=== PATIENT | female | born 1935 | race Two or more races ===

== ENCOUNTER 2016-10-09 13:16 | Emergency (ER) | payer OTHER ==
[2016-10-09 13:25] VITALS: BP 154/58; PULSE 72; TEMP 98.1; BMI 22.1
== END 2016-10-09 13:58 | disposition home or self-care (01) ==
LOC: JERFT 13:16
DX: Z48.02 Encounter for removal of sutures (principal)
CPT/HCPCS: 99281-25

== ENCOUNTER 2017-02-03 13:10 | Inpatient (IN) | payer MEDICARE, OTHER ==
--- NOTE | 2017-02-03 13:51 | PDOC ---
History of Present Illness - General Chief Complaint: Injury Stated Complaint: VOMITING Time Seen by Provider: 02/03/17 13:35 History Source: Patient - History of Present Illness Initial Comments: 02/03/17 14:07 Pt. is an 81 y/o female with PMH of HTN, CVA, afib, HLD, anemia, renal insufficiency, BIBA who presents to the ED after slipping off of the bed. Pt. states she was trying to get up from bed when she felt herself sliding off of her silk sheets. She denies hitting her head and denies any pain. She states that prior to getting out of bed she vomiting after eating cherries. She currently has no complaints and states that she feels fine. Denies fevers, chills, malaise, cough, chest pain, edema, palpitations, SOB, wheezing, nausea, diarrhea, constipation, melena, hematachezia weakness, and numbness. Past History - Travel Traveled outside of the country in the last 30 days: No Close contact w/someone who was outside of country & ill: No - Past Medical History Allergies/Adverse Reactions: Allergies Allergy/AdvReac Type Severity Reaction Status Date / Time No Known Allergies Allergy Verified 02/03/17 13:56 Home Medications: Ambulatory Orders Aspirin [ASA -] 81 mg PO DAILY 09/01/15 Carvedilol 25 mg PO BID 09/01/15 Clopidogrel Bisulfate [Clopidogrel] 75 mg PO DAILY 09/01/15 Gabapentin 100 mg PO HS 09/01/15 Levetiracetam 250 mg PO BID 09/01/15 Levothyroxine [Synthroid -] 125 mcg PO DAILY 09/01/15 Ranitidine [Zantac -] 150 mg PO DAILY 09/01/15 Simvastatin 10 mg PO HS 09/01/15 Solifenacin Succinate [Vesicare -] 10 mg PO DAILY 01/27/16 Acetaminophen [Tylenol .Regular Strength -] 650 mg PO Q6H PRN #0 tablet Heparin - 5,000 unit SQ BID vial 01/29/16 Insulin (Novolog) [Novolog -] 0 units SQ ACHS units 01/29/16 Latanoprost 0.005% Eye Drops [Xalatan 0.005% Eye Drops -] 1 drop OU DAILY drops 01/29/16 Nifedipine ER [Procardia XL -] 30 mg PO DAILY tab.er.24 01/29/16 Oxycodone HCl/Acetaminophen [Percocet 5-325 mg Tablet] 1 tab PO Q8H PRN #20 tablet MDD 3 01/29/16 Polyethylene Glycol 3350 [Miralax 119 gm Btl -] 17 gm PO DAILY bottle 01/29/16 Cardiac Disorders: Yes CVA: Yes (3-4 y/ago) Diabetes: Yes HTN: Yes Seizures: Yes (3-4 y/ago) - Surgical History Cholecystectomy: Yes Orthopedic Surgery: Yes (Right foot) - Psycho/Social/Smoking Cessation Hx Anxiety: No Suicidal Ideation: No Smoking Status: No Smoking History: Never smoked Have you smoked in the past 12 months: No Number of Cigarettes Smoked Daily: 0 Hx Alcohol Use: No Drug/Substance Use Hx: No Substance Use Type: None Hx Substance Use Treatment: No Review of Systems - Review of Systems Able to Perform ROS?: Yes Is the patient limited [place] proficient: No Constitutional: No: Chills, Fever, Weakness HEENTM: No: Eye Pain, Ear Pain, Throat Pain, Mouth Pain, Difficulty Swallowing Respiratory: No: Cough, Shortness of Breath, SOB with Exertion Cardiac (ROS): No: Chest Pain, Edema, Irregular Heart Rate, Lightheadedness, Palpitations, Chest Tightness ABD/GI: Yes: Vomiting. No: Constipated, Difficulty Swallowing, Nausea, Tarry Stools : No: Burning, Dysuria, Discharge, Frequency Integumentary: No: Bruising, Erythema, Rash Neurological: No: Headache, Numbness, Weakness All Other Systems: Reviewed and Negative *Physical Exam - Physical Exam General Appearance: Yes: Nourished, Appropriately Dressed, Other (Laying on hospital bed, AAOx3, breathing easily; not using accessory muscles to breathe. Vital signs upon entering the). No: Apparent Distress Neck: positive: Trachea midline, Normal Thyroid, Supple. negative: Tender, Rigid, Lymphadenopathy (R), Lymphadenopathy (L) Respiratory/Chest: positive: Rales (LLL). negative: Chest Tender, Lungs Clear, Normal Breath Sounds (decreased sounds to the L lung base), Respiratory Distress , Accessory Muscle Use, Rhonchi, Wheezing Cardiovascular: positive: Regular Rhythm, S1, S2, Murmur (early systolic II/, loudest at the base, L 3rd intercostal space), Tachycardia Gastrointestinal/Abdominal: positive: Normal Bowel Sounds, Flat, Soft. negative : Tender, Organomegaly, Pulsatile Mass Extremity: positive: Normal Capillary Refill, Normal Inspection, Normal Range of Motion. negative: Tender Integumentary: positive: Normal Color, Dry, Warm Neurologic: positive: geographic information scientist II-XII NML intact, Fully Oriented, Normal Mood/Affect , Normal Response, Motor Strength /5 ED Treatment Course - LABORATORY CBC & Chemistry Diagram: 02/06/17 06:00 02/08/17 06:50 Medical Decision Making - Critical Care Time Total Critical Care Time (minutes): 35 Critical Care Statement: The care of this patient involved high complexity decision making to prevent further life threatening deterioration of the patient 's condition and/or to evalute & treat vital organ system(s) failure or risk of failure. - Medical Decision Making 02/03/17 14:23 Pt. is an 81 y/o female who presents to the ED after sliding off of her bed. She presently has no complaints and states that she feels fine, however vital signs are notable for a fever of 100.0F, tachycardia to the 120's, 18 RR, and she is currently sating 93% RA. Will begin septic work up at this time. 1. Septic order set 2. IV fluids, O2 NC @ 2 LPM 3. EKG, CXR 4. Re-evaluate 02/03/17 14:57 CXR shows LLL infiltrate. Waiting for blood cultures to be drawn and then will start Levaquin. IV fluids EKG: Rate 117 sinus rhythm, normal intervals, normal axis. No acute ST-T wave changes 02/03/17 15:24 WBC is within normal limits however there are elevated leukocytes. BUN and Creatinine are elecated 40/2.[address] Seferino Mena for admission 02/03/17 15:41 Dr. Pa accepts the pt. *DC/Admit/Observation/Transfer Diagnosis at time of Disposition: HORTENSIA (acute kidney injury), Dehydration Pneumonia Qualifiers: Pneumonia type: due to unspecified organism Laterality: left Lung location: lower lobe of lung Qualified Code(s): J18.1 - Lobar pneumonia, unspecified organism - Discharge Dispostion Admit: Yes
[2017-02-03] MEDS ORDERED: SODIUM CHLORIDE 1,000 ML IV STA (14:03)
--- NOTE | 2017-02-03 15:26 | EKG ---
Test Reason : Blood Pressure : / mmHG Vent. Rate : 117 BPM Atrial Rate : 117 BPM P-R Int : 166 ms QRS Dur : 080 ms QT Int : 310 ms P-R-T Axes : 077 075 064 degrees QTc Int : 432 ms SINUS TACHYCARDIA POSSIBLE LEFT ATRIAL ENLARGEMENT LOW VOLTAGE QRS SEPTAL INFARCT (CITED ON OR BEFORE 13-JAN-2015) ABNORMAL ECG WHEN COMPARED WITH ECG OF 26-JAN-2016 10:01, PREMATURE VENTRICULAR COMPLEXES ARE NO LONGER PRESENT QUESTIONABLE CHANGE IN QRS AXIS Confirmed by DOUG YEE, DAVID ([id number]) on 02/03/2017 3:26:26 PM Referred By: Confirmed By:DAVID CAMACHO MD
[2017-02-03 15:40] LABS: BASOPHIL 0.3 % (0-2.0); EOSINOPHIL 0.4 % (0-4.5); MCH 28.8 pg (25.7-33.7); MEAN CELL VOLUME 87.4 fl (80-96); MEAN PLT VOLUME 9.2 fl (7.5-11.1); NEUTROPHILS 86.1 % (42.8-82.8); PLATELET COUNT 146 K/MM3 (134-434); WHITE BLOOD COUNT 8.3 K/mm3 (4.0-10.0)
[2017-02-03] MEDS ORDERED: LEVOFLOXACIN 750 MG IVPB 150 ML IVPB ONE ×2 (15:47→17:01)
[2017-02-03 15:58] LABS: INR 1.09 (0.82-1.09)
[2017-02-03 16:17] LABS: ALBUMIN 3.3 g/dl (3.4-5.0); ANION GAP 7 (8-16); BILIRUBIN,TOTAL 0.2 mg/dL (0.2-1.0); CALCIUM 10.4 mg/dL (8.5-10.1); CO2 26 mmol/L (21-32); CREATININE 2.4 mg/dL (0.55-1.02); GLUCOSE,RANDOM 168 mg/dL (74-106); SGOT/AST 19 U/L (15-37); SGPT/ALT 20 U/L (12-78); TOT PROT 7.4 g/dl (6.4-8.2)
[2017-02-03 16:19] LABS: ALK PHOS 55 U/L (45-117); CPK 82 IU/L (26-192); TROPONIN I 0.03 ng/ml (0.00-0.05)
[2017-02-03 17:42] LABS: URINE APPEARANCE SLCLOUDY; URINE BILIRUBIN NEGATIVE (NEGATIVE); URINE BLOOD 2+ (NEGATIVE); URINE COLOR YELLOW; URINE GLUCOSE (UA) NEGATIVE (NEGATIVE); URINE KETONE NEGATIVE (NEGATIVE); URINE NITRITE POSITIVE (NEGATIVE); URINE UROBILINOGEN NEGATIVE mg/dL (0.2-1.0)
[2017-02-03 18:14] LABS: URINE LEUK ESTERASE 1+ (NEGATIVE); URINE PROTEIN 2+ (NEGATIVE)
--- NOTE | 2017-02-03 18:21 | HP ---
Admitting History and Physical - Primary Care Physician PCP: Seferino Mena - Admission Chief Complaint: Fall. Vomitting History of Present Illness: Pt came today to ER, by EMS, after fall at home. Pt states that slid down from the bed while trying to get out it because was new sheets; pt admits that she was weak to get up and "pressed the button" for help. Pt w/o CP, palpitation, SOB, dizziness prior to fall or after. Pt tessie vomited last nught, blame it on some cherries she ate earlier; no abd pain, diarrhea. In ER she was noticed to have PNA, ARF. 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 Cardiovascular: Yes: HTN, Hyperlipdemia Renal/: Yes: Renal Inusuff Heme/Onc: Yes: Anemia Endocrine: Yes: Diabetes Mellitus Additional Past Medical History: Fall Head Trauma - Past Surgical History Past Surgical History: Yes: Cholecystectomy - Smoking History Smoking history: Never smoked Have you smoked in the past 12 months: No Aproximately how many cigarettes per day: 0 - Alcohol/Substance Use Hx Alcohol Use: No - Social History ADL: Independent History of Recent Travel: No Home Medications - Allergies Allergies/Adverse Reactions: Allergies Allergy/AdvReac Type Severity Reaction Status Date / Time No Known Allergies Allergy Verified 02/03/17 13:56 - Home Medications Home Medications: Ambulatory Orders Aspirin [ASA -] 81 mg PO DAILY 09/01/15 Carvedilol 25 mg PO BID 09/01/15 Clopidogrel Bisulfate [Clopidogrel] 75 mg PO DAILY 09/01/15 Gabapentin 100 mg PO HS 09/01/15 Levetiracetam 250 mg PO BID 09/01/15 Levothyroxine [Synthroid -] 125 mcg PO DAILY 09/01/15 Ranitidine [Zantac -] 150 mg PO DAILY 09/01/15 Simvastatin 10 mg PO HS 09/01/15 Solifenacin Succinate [Vesicare -] 10 mg PO DAILY 01/27/16 Acetaminophen [Tylenol .Regular Strength -] 650 mg PO Q6H PRN #0 tablet Heparin - 5,000 unit SQ BID vial 01/29/16 Insulin (Novolog) [Novolog -] 0 units SQ ACHS units 01/29/16 Latanoprost 0.005% Eye Drops [Xalatan 0.005% Eye Drops -] 1 drop OU DAILY drops 01/29/16 Nifedipine ER [Procardia XL -] 30 mg PO DAILY tab.er.24 01/29/16 Oxycodone HCl/Acetaminophen [Percocet 5-325 mg Tablet] 1 tab PO Q8H PRN #20 tablet MDD 3 01/29/16 Polyethylene Glycol 3350 [Miralax 119 gm Btl -] 17 gm PO DAILY bottle 01/29/16 Review of Systems - Review of Systems Constitutional: denies: Chills, Fever Eyes: denies: Blurred Vision, Double Vision, Recent Change in Vision HENT: denies: Difficult Swallowing, Ear Discharge, Ear Pain, Nasal Congestion, Throat Pain Neck: denies: Pain on Movement, Stiffness Cardiovascular: denies: Chest Pain, Edema, Palpitations, Shortness of Breath Respiratory: denies: Cough, SOB, SOB on Exertion, Wheezing Gastrointestinal: reports: Vomiting (yesterday). denies: Abdominal Pain, Constipation, Diarrhea Genitourinary: denies: Burning, Discharge Breasts: denies: Discharge from Nipple, Lumps Musculoskeletal: denies: Back Pain, Muscle Pain Integumentary: denies: Bruising, Rash Neurological: reports: Weakness. denies: Change in LOC, Incoordination, Numbness, Tremors Endocrine: denies: Excessive Sweating, Intolerance to Cold Hematology/Lymphatic: denies: Easily Bruised, Excessive Bleeding Psychiatric: denies: Anxiety, Depression Physical Examination Vital Signs: Vital Signs Temperature 100.0 F H 02/03/17 13:10 Pulse Rate 117 H 02/03/17 13:10 Respiratory Rate 18 02/03/17 13:10 Blood Pressure 177/67 02/03/17 13:10 O2 Sat by Pulse Oximetry (%) 93 L 02/03/17 13:10 Constitutional: Yes: No Distress, Calm Eyes: Yes: Conjunctiva Clear, EOM Intact, PERRL HENT: No: Drooling, Epistaxis, Pharyngeal Erythema, Rhinnorhea Neck: Yes: Trachea Midline. No: Lymphadenopathy Cardiovascular: Yes: Regular Rate and Rhythm, S1, S2 Respiratory: Yes: Regular, Wheezes (with expiration inr mid and upper lobe) Gastrointestinal: Yes: Normal Bowel Sounds, Soft. No: Palpable Mass, Tenderness ...Rectal Exam: Yes: Deferred Renal/: No: CVA Tenderness - Left, CVA Tenderness - Right Breast(s): Yes: Other (deferred) Musculoskeletal: No: Back Pain, Joint Stiffness, Joint Swelling Edema: No Integumentary: No: Bruising, Rash Neurological: Yes: Oriented, Other (motor and sensory examination is symmetric in UE/ LE/ face) Psychiatric: Yes: Alert, Oriented Labs: reviewed Imaging - Results Chest X-ray: Image Reviewed Problem List - Problems (1) Pneumonia Code(s): J18.9 - PNEUMONIA, UNSPECIFIED ORGANISM Qualifiers: Pneumonia type: due to unspecified organism Laterality: left Lung location: lower lobe of lung Qualified Code(s): J18.1 - Lobar pneumonia, unspecified organism (2) HORTENSIA (acute kidney injury) Assessment/Plan: in the setting of vomitting, PNA Code(s): N17.9 - ACUTE KIDNEY FAILURE, UNSPECIFIED (3) CAD (coronary artery disease) Code(s): I25.10 - ATHSCL HEART DISEASE OF [place] CORONARY ARTERY W/O ANG PCTRS (4) Lactic acid acidosis Assessment/Plan: borderline in the setting of ARF Code(s): E87.2 - ACIDOSIS Assessment/Plan IV abtx IVF AM labs To monitor BCX, UCX
[2017-02-03] MEDS ORDERED: ACETAMINOPHEN 325 MG TABLET (FP) PO PRN ×2 (18:39→19:20)
[2017-02-03] MEDS ORDERED: oxyCODONE HCL 5 MG TABLET PO PRN (19:20)
[2017-02-03] MEDS: HEPARIN NA (PORCINE) 5,000 UNITS/ML 1ML VIAL SQ SCH (21:59)
[2017-02-03] MEDS: CARVEDILOL 25 MG TABLET (FP) PO SCH (21:59)
[2017-02-03] MEDS: levETIRAcetam 250 MG TABLET (FP) PO SCH (21:59)
[2017-02-03] MEDS: LATANOPROST 0.005% OPHTH SOLN 2.5ML BOTTLE OU SCH (22:00)
[2017-02-03] MEDS: ATORVASTATIN CA 10 MG TABLET (FP) PO SCH (22:00)
[2017-02-04] MEDS: LEVOTHYROXINE NA 125 MCG TABLET (FP) PO SCH (06:40)
[2017-02-04 07:12] LABS: ALBUMIN 2.7 g/dl (3.4-5.0); ANION GAP 5 (8-16); BILIRUBIN,TOTAL 0.5 mg/dL (0.2-1.0); CALCIUM 9.9 mg/dL (8.5-10.1); CO2 27 mmol/L (21-32); GLUCOSE,RANDOM 59 mg/dL (74-106); SGOT/AST 14 U/L (15-37); SGPT/ALT 15 U/L (12-78); TOT PROT 6.4 g/dl (6.4-8.2)
[2017-02-04 07:13] LABS: ALK PHOS 46 U/L (45-117)
[2017-02-04 07:30] LABS: MCH 29.3 pg (25.7-33.7); MCHC 33.6 g/dl (32.0-36.0); MEAN CELL VOLUME 87.1 fl (80-96); MEAN PLT VOLUME 9.2 fl (7.5-11.1); PLATELET COUNT 108 K/MM3 (134-434); RDW 13.9 % (11.6-15.6); WHITE BLOOD COUNT 6.5 K/mm3 (4.0-10.0)
--- NOTE | 2017-02-04 10:10 | PN ---
Progress Note, Physician History of Present Illness: Pt w/o SOB, CP, palp, dizziness, abd pain, diarrhea - Current Medication List Current Medications: Active Medications Acetaminophen (Tylenol -) 650 mg PO Q6H PRN PRN Reason: FEVER OR PAIN Acetaminophen (Tylenol -) 325 mg PO Q8H PRN PRN Reason: PAIN Aspirin (Asa -) 81 mg PO DAILY COUNTS INCLUDE 234 BEDS AT [facility] Atorvastatin Calcium (Lipitor -) 10 mg PO HS COUNTS INCLUDE 234 BEDS AT THE [facility] Last Admin: 02/03/17 22:00 Dose: 10 mg Carvedilol (Coreg -) 25 mg PO BID COUNTS INCLUDE 234 BEDS AT THE [facility] Last Admin: 02/03/17 21:59 Dose: 25 mg Clopidogrel Bisulfate (Plavix -) 75 mg PO DAILY COUNTS INCLUDE 234 BEDS AT THE [facility] Heparin Sodium (Porcine) (Heparin -) 5,000 unit SQ BID COUNTS INCLUDE 234 BEDS AT THE [facility] Last Admin: 02/03/17 21:59 Dose: 5,000 unit Levofloxacin (Levaquin 250 Mg Premixed Ivpb -) 50 mls @ 50 mls/hr IVPB DAILY COUNTS INCLUDE 234 BEDS AT THE [facility] Sodium Chloride (Normal Saline -) 1,000 mls @ 42 mls/hr IV ASDIR COUNTS INCLUDE 234 BEDS AT THE [facility] Latanoprost (Xalatan 0.005% Eye Drops -) 1 drop OU HS COUNTS INCLUDE 234 BEDS AT THE [facility] Last Admin: 02/03/17 22:00 Dose: 1 drop Levetiracetam (Keppra -) 250 mg PO BID COUNTS INCLUDE 234 BEDS AT THE [facility] Last Admin: 02/03/17 21:59 Dose: 250 mg Levothyroxine Sodium (Synthroid -) 125 mcg PO DAILY@0700 COUNTS INCLUDE 234 BEDS AT THE [facility] Last Admin: 02/04/17 06:40 Dose: 125 mcg Nifedipine (Procardia Xl -) 30 mg PO DAILY COUNTS INCLUDE 234 BEDS AT THE [facility] Oxycodone HCl (Roxicodone -) 5 mg PO Q8H PRN PRN Reason: PAIN Ranitidine HCl (Zantac -) 150 mg PO DAILY COUNTS INCLUDE 234 BEDS AT THE [facility] Solifenacin (Vesicare -) 10 mg PO DAILY COUNTS INCLUDE 234 BEDS AT THE [facility] - Objective Vital Signs: Vital Signs Temperature 100.0 F H 02/04/17 06:00 Pulse Rate 92 H 02/04/17 06:00 Respiratory Rate 20 02/04/17 06:00 Blood Pressure 151/75 02/04/17 06:00 O2 Sat by Pulse Oximetry (%) 99 02/03/17 21:00 Constitutional: Yes: No Distress, Calm Cardiovascular: Yes: Regular Rate and Rhythm, S1, S2 Respiratory: Yes: Regular, Rales, Rhonchi, Wheezes (minimal expiratory) Gastrointestinal: Yes: Normal Bowel Sounds, Soft. No: Tenderness Edema: No Neurological: Yes: Alert, Oriented Labs: CBC, BMP 02/04/17 06:15 02/04/17 06:15 INR, PTT INR 1.09 (0.82-1.09) 02/03/17 15:30 - ....Imaging Chest X-ray: Report Reviewed, Image Reviewed Problem List - Problems (1) Pneumonia Assessment/Plan: community acquired Code(s): J18.9 - PNEUMONIA, UNSPECIFIED ORGANISM Qualifiers: Pneumonia type: due to unspecified organism Laterality: left Lung location: lower lobe of lung Qualified Code(s): J18.1 - Lobar pneumonia, unspecified organism (2) HORTENSIA (acute kidney injury) Assessment/Plan: in the setting of vomiting, PNA. Improving with IVF Code(s): N17.9 - ACUTE KIDNEY FAILURE, UNSPECIFIED (3) CAD (coronary artery disease) Code(s): I25.10 - ATHSCL HEART DISEASE OF [place] CORONARY ARTERY W/O ANG PCTRS (4) Lactic acid acidosis Assessment/Plan: resolved with hydration Code(s): E87.2 - ACIDOSIS Assessment/Plan Cont IV abtx Cont IVF AM labs To monitor BCX, UCX
[2017-02-04] MEDS: LEVOFLOXACIN 250 MG IVPB 50 ML IVPB SCH (10:52)
[2017-02-04] MEDS: SODIUM CHLORIDE 1,000 ML IV SCH (10:52)
[2017-02-04] MEDS: HEPARIN NA (PORCINE) 5,000 UNITS/ML 1ML VIAL SQ SCH ×2 (10:53→21:24)
[2017-02-04] MEDS: levETIRAcetam 250 MG TABLET (FP) PO SCH ×2 (10:53→21:25)
[2017-02-04] MEDS: SOLIFENACIN SUCCINATE 5 MG TAB (FP) PO SCH (10:53)
[2017-02-04] MEDS: RANITIDINE HCL 150 MG TABLET (FP) PO SCH (10:53)
[2017-02-04] MEDS: ASPIRIN 81 MG CHEWABLE TABLETS PO SCH (10:53)
[2017-02-04] MEDS: NIFEdipine E.R. 30 MG TABLET (FP) PO SCH (10:53)
[2017-02-04] MEDS: CLOPIDOGREL BISULFATE 75 MG TABLET (FP) PO SCH (10:53)
[2017-02-04] MEDS: CARVEDILOL 25 MG TABLET (FP) PO SCH ×2 (10:53→21:24)
[2017-02-04] MEDS: ATORVASTATIN CA 10 MG TABLET (FP) PO SCH (21:25)
[2017-02-04] MEDS: LATANOPROST 0.005% OPHTH SOLN 2.5ML BOTTLE OU SCH (21:26)
[2017-02-05] MEDS: LEVOTHYROXINE NA 125 MCG TABLET (FP) PO SCH (06:15)
[2017-02-05 08:07] LABS: MEAN CELL VOLUME 87.8 fl (80-96); MEAN PLT VOLUME 9.1 fl (7.5-11.1); PLATELET COUNT 105 K/MM3 (134-434); RDW 14.2 % (11.6-15.6); WHITE BLOOD COUNT 5.4 K/mm3 (4.0-10.0)
[2017-02-05 08:49] LABS: ANION GAP 9 (8-16); CALCIUM 9.7 mg/dL (8.5-10.1); CO2 24 mmol/L (21-32); CREATININE 1.9 mg/dL (0.55-1.02); GLUCOSE,RANDOM 68 mg/dL (74-106)
[2017-02-05] MEDS: SODIUM CHLORIDE 1,000 ML IV SCH (09:39)
[2017-02-05] MEDS: LEVOFLOXACIN 250 MG IVPB 50 ML IVPB SCH (09:46)
[2017-02-05] MEDS: HEPARIN NA (PORCINE) 5,000 UNITS/ML 1ML VIAL SQ SCH ×2 (09:47→22:27)
[2017-02-05] MEDS: levETIRAcetam 250 MG TABLET (FP) PO SCH ×2 (09:47→22:28)
[2017-02-05] MEDS: NIFEdipine E.R. 30 MG TABLET (FP) PO SCH (09:47)
[2017-02-05] MEDS: CLOPIDOGREL BISULFATE 75 MG TABLET (FP) PO SCH (09:47)
[2017-02-05] MEDS: RANITIDINE HCL 150 MG TABLET (FP) PO SCH (09:47)
[2017-02-05] MEDS: CARVEDILOL 25 MG TABLET (FP) PO SCH ×2 (09:47→22:26)
[2017-02-05] MEDS: SOLIFENACIN SUCCINATE 5 MG TAB (FP) PO SCH (09:47)
[2017-02-05] MEDS: ASPIRIN 81 MG CHEWABLE TABLETS PO SCH (09:47)
--- NOTE | 2017-02-05 10:33 | PN ---
Progress Note, Physician History of Present Illness: Pt w/o SOB, CP, palp, dizziness, abd pain, diarrhea. - Current Medication List Current Medications: Active Medications Acetaminophen (Tylenol -) 650 mg PO Q6H PRN PRN Reason: FEVER OR PAIN Acetaminophen (Tylenol -) 325 mg PO Q8H PRN PRN Reason: PAIN Last Admin: 02/04/17 10:54 Dose: 325 mg Aspirin (Asa -) 81 mg PO DAILY [facility] Last Admin: 02/05/17 09:47 Dose: 81 mg Atorvastatin Calcium (Lipitor -) 10 mg PO HS [facility] Last Admin: 02/04/17 21:25 Dose: 10 mg Carvedilol (Coreg -) 25 mg PO BID [facility] Last Admin: 02/05/17 09:47 Dose: 25 mg Clopidogrel Bisulfate (Plavix -) 75 mg PO DAILY [facility] Last Admin: 02/05/17 09:47 Dose: 75 mg Heparin Sodium (Porcine) (Heparin -) 5,000 unit SQ BID [facility] Last Admin: 02/05/17 09:47 Dose: 5,000 unit Levofloxacin (Levaquin 250 Mg Premixed Ivpb -) 50 mls @ 50 mls/hr IVPB DAILY [facility] Last Admin: 02/05/17 09:46 Dose: 50 mls/hr Sodium Chloride (Normal Saline -) 1,000 mls @ 42 mls/hr IV ASDIR [facility] Last Admin: 02/05/17 09:39 Dose: 42 mls/hr Latanoprost (Xalatan 0.005% Eye Drops -) 1 drop OU HS [facility] Last Admin: 02/04/17 21:26 Dose: 1 drop Levetiracetam (Keppra -) 250 mg PO BID [facility] Last Admin: 02/05/17 09:47 Dose: 250 mg Levothyroxine Sodium (Synthroid -) 125 mcg PO DAILY@0700 [facility] Last Admin: 02/05/17 06:15 Dose: 125 mcg Nifedipine (Procardia Xl -) 30 mg PO DAILY [facility] Last Admin: 02/05/17 09:47 Dose: 30 mg Oxycodone HCl (Roxicodone -) 5 mg PO Q8H PRN PRN Reason: PAIN Ranitidine HCl (Zantac -) 150 mg PO DAILY [facility] Last Admin: 02/05/17 09:47 Dose: 150 mg Solifenacin (Vesicare -) 10 mg PO DAILY [facility] Last Admin: 02/05/17 09:47 Dose: 10 mg - Objective Vital Signs: Vital Signs Temperature 98.8 F 02/05/17 06:00 Pulse Rate 92 H 02/05/17 06:00 Respiratory Rate 18 02/05/17 06:00 Blood Pressure 144/70 02/05/17 06:00 O2 Sat by Pulse Oximetry (%) 97 02/04/17 21:00 Constitutional: Yes: No Distress, Calm Cardiovascular: Yes: Regular Rate and Rhythm, S1, S2 Respiratory: Yes: Regular, Rales (at bases, L > R) Gastrointestinal: Yes: Normal Bowel Sounds, Soft. No: Tenderness Edema: No Neurological: Yes: Alert, Oriented Labs: CBC, BMP 02/05/17 06:58 02/05/17 06:58 INR, PTT INR 1.09 (0.82-1.09) 02/03/17 15:30 Problem List - Problems (1) Pneumonia Code(s): J18.9 - PNEUMONIA, UNSPECIFIED ORGANISM Qualifiers: Pneumonia type: due to unspecified organism Laterality: left Lung location: lower lobe of lung Qualified Code(s): J18.1 - Lobar pneumonia, unspecified organism (2) HORTENSIA (acute kidney injury) Code(s): N17.9 - ACUTE KIDNEY FAILURE, UNSPECIFIED (3) CAD (coronary artery disease) Code(s): I25.10 - ATHSCL HEART DISEASE OF [place] CORONARY ARTERY W/O ANG PCTRS (4) Lactic acid acidosis Code(s): E87.2 - ACIDOSIS Assessment/Plan Cont IV abtx Cont IVF Check O2 sat ARF improving AM labs To monitor BCX, UCX
[2017-02-05] MEDS ORDERED: PT OWN MED DRAWER 7, Y5N ONE (21:53)
[2017-02-05] MEDS: ATORVASTATIN CA 10 MG TABLET (FP) PO SCH (22:30)
[2017-02-05] MEDS: LATANOPROST 0.005% OPHTH SOLN 2.5ML BOTTLE OU SCH (22:30)
[2017-02-06] MEDS: LEVOTHYROXINE NA 125 MCG TABLET (FP) PO SCH (06:34)
[2017-02-06 07:01] LABS: MCH 28.9 pg (25.7-33.7); MCHC 32.9 g/dl (32.0-36.0); MEAN CELL VOLUME 87.9 fl (80-96); MEAN PLT VOLUME 9.5 fl (7.5-11.1); PLATELET COUNT 135 K/MM3 (134-434); RDW 13.9 % (11.6-15.6); WHITE BLOOD COUNT 5.2 K/mm3 (4.0-10.0)
[2017-02-06 07:30] LABS: ANION GAP 11 (8-16); CO2 22 mmol/L (21-32); GLUCOSE,RANDOM 133 mg/dL (74-106)
[2017-02-06] MEDS: SODIUM CHLORIDE 1,000 ML IV SCH ×3 (09:30→22:26)
[2017-02-06] MEDS ORDERED: PT OWN MED DRAWER 7, Y5N ONE (11:05)
[2017-02-06] MEDS: RANITIDINE HCL 150 MG TABLET (FP) PO SCH (11:07)
[2017-02-06] MEDS: SOLIFENACIN SUCCINATE 5 MG TAB (FP) PO SCH (11:07)
[2017-02-06] MEDS: NIFEdipine E.R. 30 MG TABLET (FP) PO SCH (11:08)
[2017-02-06] MEDS: CLOPIDOGREL BISULFATE 75 MG TABLET (FP) PO SCH (11:08)
[2017-02-06] MEDS: ASPIRIN 81 MG CHEWABLE TABLETS PO SCH (11:08)
[2017-02-06] MEDS: HEPARIN NA (PORCINE) 5,000 UNITS/ML 1ML VIAL SQ SCH ×2 (11:08→22:00)
[2017-02-06] MEDS: CARVEDILOL 25 MG TABLET (FP) PO SCH ×2 (11:08→22:00)
[2017-02-06] MEDS: LEVOFLOXACIN 250 MG IVPB 50 ML IVPB SCH (11:08)
[2017-02-06] MEDS: levETIRAcetam 250 MG TABLET (FP) PO SCH ×2 (11:08→22:01)
--- NOTE | 2017-02-06 13:45 | PN ---
Progress Note, Physician History of Present Illness: Pt w/o SOB, CP, palp, dizziness, abd pain, diarrhea. Pt "not drinking enough" - Current Medication List Current Medications: Active Medications Acetaminophen (Tylenol -) 650 mg PO Q6H PRN PRN Reason: FEVER OR PAIN Acetaminophen (Tylenol -) 325 mg PO Q8H PRN PRN Reason: PAIN Last Admin: 02/04/17 10:54 Dose: 325 mg Aspirin (Asa -) 81 mg PO DAILY [facility] Last Admin: 02/06/17 11:08 Dose: 81 mg Atorvastatin Calcium (Lipitor -) 10 mg PO HS [facility] Last Admin: 02/05/17 22:30 Dose: 10 mg Carvedilol (Coreg -) 25 mg PO BID [facility] Last Admin: 02/06/17 11:08 Dose: 25 mg Clopidogrel Bisulfate (Plavix -) 75 mg PO DAILY [facility] Last Admin: 02/06/17 11:08 Dose: 75 mg Heparin Sodium (Porcine) (Heparin -) 5,000 unit SQ BID [facility] Last Admin: 02/06/17 11:08 Dose: 5,000 unit Levofloxacin (Levaquin 250 Mg Premixed Ivpb -) 50 mls @ 50 mls/hr IVPB DAILY [facility] Last Admin: 02/06/17 11:08 Dose: 50 mls/hr Sodium Chloride (Normal Saline -) 1,000 mls @ 42 mls/hr IV ASDIR [facility] Last Admin: 02/06/17 09:30 Dose: 42 mls/hr Latanoprost (Xalatan 0.005% Eye Drops -) 1 drop OU HS [facility] Last Admin: 02/05/17 22:30 Dose: 1 drop Levetiracetam (Keppra -) 250 mg PO BID [facility] Last Admin: 02/06/17 11:08 Dose: 250 mg Levothyroxine Sodium (Synthroid -) 125 mcg PO DAILY@0700 [facility] Last Admin: 02/06/17 06:34 Dose: 125 mcg Nifedipine (Procardia Xl -) 30 mg PO DAILY [facility] Last Admin: 02/06/17 11:08 Dose: 30 mg Oxycodone HCl (Roxicodone -) 5 mg PO Q8H PRN PRN Reason: PAIN Ranitidine HCl (Zantac -) 150 mg PO DAILY [facility] Last Admin: 02/06/17 11:07 Dose: 150 mg Solifenacin (Vesicare -) 10 mg PO DAILY [facility] Last Admin: 02/06/17 11:07 Dose: 10 mg - Objective Vital Signs: Vital Signs Temperature 98.3 F 02/06/17 09:39 Pulse Rate 96 H 02/06/17 09:39 Respiratory Rate 20 02/06/17 09:39 Blood Pressure 134/78 02/06/17 09:39 O2 Sat by Pulse Oximetry (%) 93 L 02/05/17 21:00 Constitutional: Yes: No Distress, Calm Cardiovascular: Yes: Regular Rate and Rhythm, S1, S2 Respiratory: Yes: Regular, Rhonchi (at left base), Wheezes (minimal, expiratory) Gastrointestinal: Yes: Normal Bowel Sounds, Soft. No: Tenderness Edema: No Neurological: Yes: Alert, Oriented Labs: CBC, BMP 02/06/17 06:00 02/06/17 06:00 INR, PTT INR 1.09 (0.82-1.09) 02/03/17 15:30 Problem List - Problems (1) Pneumonia Code(s): J18.9 - PNEUMONIA, UNSPECIFIED ORGANISM Qualifiers: Pneumonia type: due to unspecified organism Laterality: left Lung location: lower lobe of lung Qualified Code(s): J18.1 - Lobar pneumonia, unspecified organism (2) HORTENSIA (acute kidney injury) Assessment/Plan: in the setting of vomiting, PNA. stop improving, worse that her baseline Code(s): N17.9 - ACUTE KIDNEY FAILURE, UNSPECIFIED (3) CAD (coronary artery disease) Code(s): I25.10 - ATHSCL HEART DISEASE OF [place] CORONARY ARTERY W/O ANG PCTRS (4) Lactic acid acidosis Code(s): E87.2 - ACIDOSIS Assessment/Plan Cont IV abtx Cont IVF Check O2 sat Renal consult AM labs Case was d/w pt and pt's son (at bed side)
[2017-02-06] MEDS: LATANOPROST 0.005% OPHTH SOLN 2.5ML BOTTLE OU SCH (22:01)
[2017-02-06] MEDS: ATORVASTATIN CA 10 MG TABLET (FP) PO SCH (22:01)
[2017-02-07] MEDS: LEVOTHYROXINE NA 125 MCG TABLET (FP) PO SCH (06:25)
[2017-02-07 07:47] LABS: ALK PHOS 46 U/L (45-117); ANION GAP 7 (8-16); BILIRUBIN,TOTAL 0.5 mg/dL (0.2-1.0); CO2 25 mmol/L (21-32); CREATININE 1.8 mg/dL (0.55-1.02); GLUCOSE,RANDOM 97 mg/dL (74-106); SGOT/AST 21 U/L (15-37); SGPT/ALT 17 U/L (12-78); TOT PROT 6.9 g/dl (6.4-8.2)
[2017-02-07 09:15] VITALS: BMI 23.4
--- NOTE | 2017-02-07 09:15 | CON.NEP ---
Consult Consult Specialty:: Nephrology ([facility]/Codey) Referred by:: Dr. Mena Reason for Consultation:: HORTENSIA on CKD - History of Present Illness Chief Complaint: Fall History of Present Illness: This is a 81 year old woman with PMhx of CKD stage 4 wtih tubular proteinuria, Hypertension, DM Type 2, CVA who presented s/p mechanical fall at home with inability to get up and found to have PNA and HORTENSIA on CKD. Pt reports that she has a poor appetite. Denies any N/V/D. + Advil use every other day at home. No dysuria, flank pain, sob, chest pain. No rash. No recent abx use outside the hospital Pt on IVF. - History Source History Provided By: Patient Limitations to Obtaining History: No Limitations - Past Medical History RN INTERNSHIP: Yes: CVA Cardio/Vascular: Yes: HTN, Hyperlipdemia Renal/: Yes: Renal Inusuff Endocrine: Yes: Diabetes Mellitus - Past Surgical History Past Surgical History: Yes: Cholecystectomy - Alcohol/Substance Use Hx Alcohol Use: No - Smoking History Smoking history: Never smoked Have you smoked in the past 12 months: No Aproximately how many cigarettes per day: 0 - Social History ADL: Independent History of Recent Travel: No Home Medications - Allergies Allergies/Adverse Reactions: Allergies Allergy/AdvReac Type Severity Reaction Status Date / Time No Known Allergies Allergy Verified 02/03/17 13:56 - Home Medications Home Medications: Ambulatory Orders Aspirin [ASA -] 81 mg PO DAILY 09/01/15 Carvedilol 25 mg PO BID 09/01/15 Clopidogrel Bisulfate [Clopidogrel] 75 mg PO DAILY 09/01/15 Gabapentin 100 mg PO HS 09/01/15 Levetiracetam 250 mg PO BID 09/01/15 Levothyroxine [Synthroid -] 125 mcg PO DAILY 09/01/15 Ranitidine [Zantac -] 150 mg PO DAILY 09/01/15 Simvastatin 10 mg PO HS 09/01/15 Solifenacin Succinate [Vesicare -] 10 mg PO DAILY 01/27/16 Acetaminophen [Tylenol .Regular Strength -] 650 mg PO Q6H PRN #0 tablet Heparin - 5,000 unit SQ BID vial 01/29/16 Insulin (Novolog) [Novolog -] 0 units SQ ACHS units 01/29/16 Latanoprost 0.005% Eye Drops [Xalatan 0.005% Eye Drops -] 1 drop OU DAILY drops 01/29/16 Nifedipine ER [Procardia XL -] 30 mg PO DAILY tab.er.24 01/29/16 Oxycodone HCl/Acetaminophen [Percocet 5-325 mg Tablet] 1 tab PO Q8H PRN #20 tablet MDD 3 01/29/16 Polyethylene Glycol 3350 [Miralax 119 gm Btl -] 17 gm PO DAILY bottle 01/29/16 Family Disease History - Family Disease History Family History: Unremarkable Review of Systems - Review of Systems Constitutional: reports: No Symptoms Eyes: reports: No Symptoms HENT: reports: No Symptoms Neck: reports: No Symptoms Cardiovascular: reports: No Symptoms Respiratory: reports: No Symptoms Gastrointestinal: reports: No Symptoms Genitourinary: reports: No Symptoms Neurological: reports: No Symptoms Endocrine: reports: No Symptoms Nephrology Consult - Height Height: 5 ft 6 in - Weight Weight: 145 lb 6 oz - BMI Body Mass Index (BMI): 23.4 - Lab Results CBC,BMP: CBC, BMP 02/06/17 06:00 02/07/17 06:00 Anion Gap: Anion Gap Anion Gap 7 (8-16) L 02/07/17 06:00 - Imaging Chest X-ray: Report Reviewed - Physical Examination Vital Signs: Vital Signs Temperature 97.7 F 02/07/17 06:00 Pulse Rate 83 02/07/17 06:00 Respiratory Rate 20 02/07/17 06:00 Blood Pressure 102/57 02/07/17 06:00 O2 Sat by Pulse Oximetry (%) 97 02/06/17 21:00 Constitutional: Yes: Well Nourished, No Distress, Calm Eyes: Yes: Conjunctiva Clear HENT: Yes: Atraumatic, Normocephalic Neck: Yes: Supple Cardiovascular: Yes: Regular Rate and Rhythm, S1, S2. No: Murmur, Rub Respiratory: Yes: Regular, CTA Bilaterally. No: Rales, Rhonchi Gastrointestinal: Yes: Normal Bowel Sounds, Soft Renal/: No: Anuria, Bladder Distention, CVA Tenderness - Left, CVA Tenderness - Right, Dim[place] Present Edema: No Neurological: Yes: Alert, Oriented Problem List - Problems (1) HORTENSIA (acute kidney injury) Code(s): N17.9 - ACUTE KIDNEY FAILURE, UNSPECIFIED (2) Diabetes Code(s): E11.9 - TYPE 2 DIABETES MELLITUS WITHOUT COMPLICATIONS (3) Hypertension Code(s): I10 - ESSENTIAL (PRIMARY) HYPERTENSION (4) Renal insufficiency Code(s): N28.9 - DISORDER OF KIDNEY AND URETER, UNSPECIFIED (5) Fall Code(s): W19.XXXA - UNSPECIFIED FALL, INITIAL ENCOUNTER Assessment/Plan 81 year old woman with PMhx of CKD stage 4 wtih tubular proteinuria, Hypertension, DM Type 2, CVA who presented s/p mechanical fall at home with inability to get up and found to have PNA and HORTENSIA on CKD. #Acute on Chronic Renal insufficiency etiology likely intravascular volume depletion in setting of PNA vs ATN given NSAID use Renal function now improving toward baseline Check FeNa, FeUrea, UPCR No acute indication for renal US continue gentle IVF for 24 more hous advised to avoid further NSAID use Not currently on SCOTT/ARB Dose all meds for Cr cl less then 30 #PNA continue Abx as per primary #Hypertension Continue Nifedipne and Coreg Goal BP < 140/90 Thank you Will follow Gibson Alegre DO
[2017-02-07] MEDS: SOLIFENACIN SUCCINATE 5 MG TAB (FP) PO SCH (09:31)
[2017-02-07] MEDS: ASPIRIN 81 MG CHEWABLE TABLETS PO SCH (09:31)
[2017-02-07] MEDS: CLOPIDOGREL BISULFATE 75 MG TABLET (FP) PO SCH (09:31)
[2017-02-07] MEDS: NIFEdipine E.R. 30 MG TABLET (FP) PO SCH (09:32)
[2017-02-07] MEDS: levETIRAcetam 250 MG TABLET (FP) PO SCH ×2 (09:32→21:09)
[2017-02-07] MEDS: RANITIDINE HCL 150 MG TABLET (FP) PO SCH (09:32)
[2017-02-07] MEDS: CARVEDILOL 25 MG TABLET (FP) PO SCH ×2 (09:33→21:09)
[2017-02-07] MEDS: LEVOFLOXACIN 250 MG IVPB 50 ML IVPB SCH (09:33)
[2017-02-07] MEDS: HEPARIN NA (PORCINE) 5,000 UNITS/ML 1ML VIAL SQ SCH ×2 (09:33→21:09)
--- NOTE | 2017-02-07 12:41 | PN ---
Progress Note, Physician History of Present Illness: Pt w/o SOB, CP, palp, dizziness, abd pain, diarrhea. - Current Medication List Current Medications: Active Medications Acetaminophen (Tylenol -) 650 mg PO Q6H PRN PRN Reason: FEVER OR PAIN Acetaminophen (Tylenol -) 325 mg PO Q8H PRN PRN Reason: PAIN Last Admin: 02/04/17 10:54 Dose: 325 mg Aspirin (Asa -) 81 mg PO DAILY [facility] Last Admin: 02/07/17 09:31 Dose: 81 mg Atorvastatin Calcium (Lipitor -) 10 mg PO HS [facility] Last Admin: 02/06/17 22:01 Dose: 10 mg Carvedilol (Coreg -) 25 mg PO BID [facility] Last Admin: 02/07/17 09:33 Dose: 25 mg Clopidogrel Bisulfate (Plavix -) 75 mg PO DAILY [facility] Last Admin: 02/07/17 09:31 Dose: 75 mg Heparin Sodium (Porcine) (Heparin -) 5,000 unit SQ BID [facility] Last Admin: 02/07/17 09:33 Dose: 5,000 unit Levofloxacin (Levaquin 250 Mg Premixed Ivpb -) 50 mls @ 50 mls/hr IVPB DAILY [facility] Last Admin: 02/07/17 09:33 Dose: 50 mls/hr Sodium Chloride (Normal Saline -) 1,000 mls @ 65 mls/hr IV ASDIR [facility] Last Admin: 02/06/17 22:26 Dose: 65 mls/hr Latanoprost (Xalatan 0.005% Eye Drops -) 1 drop OU HS [facility] Last Admin: 02/06/17 22:01 Dose: 1 drop Levetiracetam (Keppra -) 250 mg PO BID [facility] Last Admin: 02/07/17 09:32 Dose: 250 mg Levothyroxine Sodium (Synthroid -) 125 mcg PO DAILY@0700 [facility] Last Admin: 02/07/17 06:25 Dose: 125 mcg Nifedipine (Procardia Xl -) 30 mg PO DAILY [facility] Last Admin: 02/07/17 09:32 Dose: 30 mg Ranitidine HCl (Zantac -) 150 mg PO DAILY [facility] Last Admin: 02/07/17 09:32 Dose: 150 mg Solifenacin (Vesicare -) 10 mg PO DAILY [facility] Last Admin: 02/07/17 09:31 Dose: 10 mg - Objective Vital Signs: Vital Signs Temperature 97.7 F 02/07/17 06:00 Pulse Rate 88 02/07/17 09:26 Respiratory Rate 20 02/07/17 09:26 Blood Pressure 154/73 02/07/17 09:26 O2 Sat by Pulse Oximetry (%) 97 02/06/17 21:00 Constitutional: Yes: No Distress, Calm Cardiovascular: Yes: Regular Rate and Rhythm, S1, S2 Respiratory: Yes: Regular, CTA Bilaterally. No: Rales Gastrointestinal: Yes: Normal Bowel Sounds, Soft. No: Tenderness Edema: No Neurological: Yes: Alert, Oriented Labs: CBC, BMP 02/06/17 06:00 02/07/17 06:00 INR, PTT INR 1.09 (0.82-1.09) 02/03/17 15:30 Problem List - Problems (1) Pneumonia Code(s): J18.9 - PNEUMONIA, UNSPECIFIED ORGANISM Qualifiers: Pneumonia type: due to unspecified organism Laterality: left Lung location: lower lobe of lung Qualified Code(s): J18.1 - Lobar pneumonia, unspecified organism (2) HORTENSIA (acute kidney injury) Code(s): N17.9 - ACUTE KIDNEY FAILURE, UNSPECIFIED (3) CAD (coronary artery disease) Code(s): I25.10 - ATHSCL HEART DISEASE OF [place] CORONARY ARTERY W/O ANG PCTRS (4) Lactic acid acidosis Code(s): E87.2 - ACIDOSIS Assessment/Plan Cont IV abtx Cont IVF- rate was increased, renal function slightly better. Renal consult appreciated AM labs Case was d/w pt and pt's son (at bed side)
[2017-02-07] MEDS: SODIUM CHLORIDE 1,000 ML IV SCH ×2 (13:45→18:30)
[2017-02-07] MEDS: LATANOPROST 0.005% OPHTH SOLN 2.5ML BOTTLE OU SCH (21:09)
[2017-02-07] MEDS: ATORVASTATIN CA 10 MG TABLET (FP) PO SCH (21:09)
[2017-02-08] MEDS: LEVOTHYROXINE NA 125 MCG TABLET (FP) PO SCH (06:19)
[2017-02-08 08:14] LABS: ANION GAP 7 (8-16); CALCIUM 9.6 mg/dL (8.5-10.1); CO2 25 mmol/L (21-32); CREATININE 1.7 mg/dL (0.55-1.02); GLUCOSE,RANDOM 85 mg/dL (74-106); MAGNESIUM 1.2 mg/dL (1.8-2.4); PHOSPHOROUS 2.5 mg/dL (2.5-4.9)
[2017-02-08] MEDS: LEVOFLOXACIN 250 MG IVPB 50 ML IVPB SCH (09:43)
[2017-02-08] MEDS: ASPIRIN 81 MG CHEWABLE TABLETS PO SCH (09:48)
[2017-02-08] MEDS: levETIRAcetam 250 MG TABLET (FP) PO SCH ×2 (09:48→22:03)
[2017-02-08] MEDS: CARVEDILOL 25 MG TABLET (FP) PO SCH ×2 (09:48→22:03)
[2017-02-08] MEDS: CLOPIDOGREL BISULFATE 75 MG TABLET (FP) PO SCH (09:48)
[2017-02-08] MEDS: HEPARIN NA (PORCINE) 5,000 UNITS/ML 1ML VIAL SQ SCH ×2 (09:48→22:03)
[2017-02-08] MEDS: RANITIDINE HCL 150 MG TABLET (FP) PO SCH (09:48)
[2017-02-08] MEDS: NIFEdipine E.R. 30 MG TABLET (FP) PO SCH (09:48)
[2017-02-08] MEDS: MAGNESIUM SULF 50% (8.12 MEQ/2 ML-1 GM VIAL) IVPB SCH ×2 (10:39→12:03)
[2017-02-08] MEDS: SOLIFENACIN SUCCINATE 5 MG TAB (FP) PO SCH (10:40)
--- NOTE | 2017-02-08 17:53 | PN ---
Progress Note, Physician History of Present Illness: Pt w/o SOB, CP, palp, dizziness, abd pain, diarrhea. - Current Medication List Current Medications: Active Medications Acetaminophen (Tylenol -) 650 mg PO Q6H PRN PRN Reason: FEVER OR PAIN Acetaminophen (Tylenol -) 325 mg PO Q8H PRN PRN Reason: PAIN Last Admin: 02/04/17 10:54 Dose: 325 mg Aspirin (Asa -) 81 mg PO DAILY [facility] Last Admin: 02/08/17 09:48 Dose: 81 mg Atorvastatin Calcium (Lipitor -) 10 mg PO HS [facility] Last Admin: 02/07/17 21:09 Dose: 10 mg Carvedilol (Coreg -) 25 mg PO BID [facility] Last Admin: 02/08/17 09:48 Dose: 25 mg Clopidogrel Bisulfate (Plavix -) 75 mg PO DAILY [facility] Last Admin: 02/08/17 09:48 Dose: 75 mg Heparin Sodium (Porcine) (Heparin -) 5,000 unit SQ BID [facility] Last Admin: 02/08/17 09:48 Dose: 5,000 unit Levofloxacin (Levaquin 250 Mg Premixed Ivpb -) 50 mls @ 50 mls/hr IVPB DAILY [facility] Last Admin: 02/08/17 09:43 Dose: 50 mls/hr Sodium Chloride (Normal Saline -) 1,000 mls @ 65 mls/hr IV ASDIR [facility] Last Admin: 02/07/17 18:30 Dose: 65 mls/hr Latanoprost (Xalatan 0.005% Eye Drops -) 1 drop OU HS [facility] Last Admin: 02/07/17 21:09 Dose: 1 drop Levetiracetam (Keppra -) 250 mg PO BID [facility] Last Admin: 02/08/17 09:48 Dose: 250 mg Levothyroxine Sodium (Synthroid -) 125 mcg PO DAILY@0700 [facility] Last Admin: 02/08/17 06:19 Dose: 125 mcg Nifedipine (Procardia Xl -) 30 mg PO DAILY [facility] Last Admin: 02/08/17 09:48 Dose: 30 mg Ranitidine HCl (Zantac -) 150 mg PO DAILY [facility] Last Admin: 02/08/17 09:48 Dose: 150 mg Solifenacin (Vesicare -) 10 mg PO DAILY [facility] Last Admin: 02/08/17 10:40 Dose: 10 mg - Objective Vital Signs: Vital Signs Temperature 97.9 F 02/08/17 14:03 Pulse Rate 70 02/08/17 14:03 Respiratory Rate 18 02/08/17 14:03 Blood Pressure 118/63 02/08/17 14:03 O2 Sat by Pulse Oximetry (%) 98 02/07/17 11:00 Constitutional: Yes: No Distress, Calm Cardiovascular: Yes: Regular Rate and Rhythm, S1, S2 Respiratory: Yes: Regular, CTA Bilaterally Gastrointestinal: Yes: Normal Bowel Sounds, Soft. No: Tenderness Edema: No Neurological: Yes: Alert, Oriented Labs: CBC, BMP 02/06/17 06:00 02/08/17 06:50 INR, PTT INR 1.09 (0.82-1.09) 02/03/17 15:30 Problem List - Problems (1) Pneumonia Code(s): J18.9 - PNEUMONIA, UNSPECIFIED ORGANISM Qualifiers: Pneumonia type: due to unspecified organism Laterality: left Lung location: lower lobe of lung Qualified Code(s): J18.1 - Lobar pneumonia, unspecified organism (2) HORTENSIA (acute kidney injury) Code(s): N17.9 - ACUTE KIDNEY FAILURE, UNSPECIFIED (3) CAD (coronary artery disease) Code(s): I25.10 - ATHSCL HEART DISEASE OF [place] CORONARY ARTERY W/O ANG PCTRS (4) Lactic acid acidosis Code(s): E87.2 - ACIDOSIS (5) Hypomagnesemia Assessment/Plan: replete Mg; monitor level Code(s): E83.42 - HYPOMAGNESEMIA
[2017-02-08] MEDS: SODIUM CHLORIDE 1,000 ML IV SCH (18:05)
[2017-02-08 21:03] LABS: ANION GAP 8 (8-16); CALCIUM 9.4 mg/dL (8.5-10.1); CO2 23 mmol/L (21-32); CREATININE 1.8 mg/dL (0.55-1.02); GLUCOSE,RANDOM 113 mg/dL (74-106); MAGNESIUM 2.4 mg/dL (1.8-2.4)
[2017-02-08] MEDS: ATORVASTATIN CA 10 MG TABLET (FP) PO SCH (22:03)
[2017-02-08] MEDS: LATANOPROST 0.005% OPHTH SOLN 2.5ML BOTTLE OU SCH (23:31)
[2017-02-08] MEDS: MUPIROCIN CA 2% TOPICAL CREAM 15 GM TUBE TP SCH (23:31)
[2017-02-09 00:54] VITALS: TEMP 98.4
[2017-02-09] MEDS: LEVOTHYROXINE NA 125 MCG TABLET (FP) PO SCH (06:19)
[2017-02-09] MEDS: SODIUM CHLORIDE 1,000 ML IV SCH (07:25)
[2017-02-09 07:50] VITALS: BP 155/63; PULSE 86
[2017-02-09 09:26] LABS: ANION GAP 6 (8-16); CALCIUM 9.6 mg/dL (8.5-10.1); CO2 24 mmol/L (21-32); GLUCOSE,RANDOM 91 mg/dL (74-106)
[2017-02-09 09:29] LABS: CREATININE 1.6 mg/dL (0.55-1.02)
[2017-02-09] MEDS ORDERED: MAGNESIUM OXIDE 400 MG TABLET (FP) PO SCH (10:45)
[2017-02-09] MEDS: RANITIDINE HCL 150 MG TABLET (FP) PO SCH (10:51)
[2017-02-09] MEDS: CLOPIDOGREL BISULFATE 75 MG TABLET (FP) PO SCH (10:51)
[2017-02-09] MEDS: NIFEdipine E.R. 30 MG TABLET (FP) PO SCH (10:51)
[2017-02-09] MEDS: levETIRAcetam 250 MG TABLET (FP) PO SCH (10:52)
[2017-02-09] MEDS: CARVEDILOL 25 MG TABLET (FP) PO SCH (10:52)
[2017-02-09] MEDS: MUPIROCIN CA 2% TOPICAL CREAM 15 GM TUBE TP SCH (10:52)
[2017-02-09] MEDS: ASPIRIN 81 MG CHEWABLE TABLETS PO SCH (10:52)
[2017-02-09] MEDS: LEVOFLOXACIN 250 MG IVPB 50 ML IVPB SCH (10:53)
[2017-02-09] MEDS: HEPARIN NA (PORCINE) 5,000 UNITS/ML 1ML VIAL SQ SCH (10:53)
[2017-02-09] MEDS: SOLIFENACIN SUCCINATE 5 MG TAB (FP) PO SCH (13:07)
--- NOTE | 2017-02-09 13:11 | PN ---
Progress Note (short form) - Note Progress Note: Renal follow up for HORTENSIA on CKD Pt seen and examined at the bedside awake and alert no acute complaints possible discharge home today denies any CP, SOB, Abd pain, N/V/D, urinating well Vital Signs Temperature 98.4 F 02/09/17 07:48 Pulse Rate 86 02/09/17 07:48 Respiratory Rate 20 02/09/17 07:48 Blood Pressure 155/63 02/09/17 07:48 O2 Sat by Pulse Oximetry (%) 96 02/08/17 21:00 Intake & Output 02/06/17 02/07/17 02/08/17 02/09/17 23:59 23:59 23:59 23:59 Intake Total 1178 2760 2380 Balance 1178 2760 2380 Weight 145 lb 6 oz Gen: NAD CVS: RRR Lungs: CTA, no rales, wheeze Abd: soft NT/ND Ext: No edema CBC, BMP 02/06/17 06:00 02/09/17 07:35 Current Medications Acetaminophen (Tylenol -) 650 mg PO Q6H PRN PRN Reason: FEVER OR PAIN Acetaminophen (Tylenol -) 325 mg PO Q8H PRN PRN Reason: PAIN Last Admin: 02/04/17 10:54 Dose: 325 mg Aspirin (Asa -) 81 mg PO DAILY [facility] Last Admin: 02/09/17 10:52 Dose: 81 mg Atorvastatin Calcium (Lipitor -) 10 mg PO HS [facility] Last Admin: 02/08/17 22:03 Dose: 10 mg Carvedilol (Coreg -) 25 mg PO BID [facility] Last Admin: 02/09/17 10:52 Dose: 25 mg Clopidogrel Bisulfate (Plavix -) 75 mg PO DAILY [facility] Last Admin: 02/09/17 10:51 Dose: 75 mg Heparin Sodium (Porcine) (Heparin -) 5,000 unit SQ BID [facility] Last Admin: 02/09/17 10:53 Dose: 5,000 unit Latanoprost (Xalatan 0.005% Eye Drops -) 1 drop OU HS [facility] Last Admin: 02/08/17 23:31 Dose: 1 drop Levetiracetam (Keppra -) 250 mg PO BID [facility] Last Admin: 02/09/17 10:52 Dose: 250 mg Levofloxacin (Levaquin -) 250 mg PO DAILY [facility] Levothyroxine Sodium (Synthroid -) 125 mcg PO DAILY@0700 [facility] Last Admin: 02/09/17 06:19 Dose: 125 mcg Magnesium Oxide (Mag-Ox -) 400 mg PO DAILY [facility] Mupirocin (Bactroban 2% Cream -) 1 applic TP BID [facility] Last Admin: 02/09/17 10:52 Dose: 1 applic Nifedipine (Procardia Xl -) 30 mg PO DAILY [facility] Last Admin: 02/09/17 10:51 Dose: 30 mg Ranitidine HCl (Zantac -) 150 mg PO DAILY [facility] Last Admin: 02/09/17 10:51 Dose: 150 mg Solifenacin (Vesicare -) 10 mg PO DAILY [facility] Last Admin: 02/09/17 13:07 Dose: 10 mg A/p 81 year old woman with PMhx of CKD stage 4 wtih tubular proteinuria, Hypertension, DM Type 2, CVA who presented s/p mechanical fall at home with inability to get up and found to have PNA and HORTENSIA on CKD. #Acute on Chronic Renal insufficiency Renal function improved s/p IVF Hydration FeNa was 2% - indeterminate Pt Cr now at baseline off IVF, and pt is evolemic with good urine output Pt to follow up in the office as an outpatient for CKD management #PNA continue Abx as per primary #Hypertension Continue Nifedipne and Coreg Goal BP < 140/90 D/C planning as per PMD Gibson Alegre DO Problem List - Problems (1) HORTENSIA (acute kidney injury) Code(s): N17.9 - ACUTE KIDNEY FAILURE, UNSPECIFIED (2) Diabetes Code(s): E11.9 - TYPE 2 DIABETES MELLITUS WITHOUT COMPLICATIONS (3) Hypertension Code(s): I10 - ESSENTIAL (PRIMARY) HYPERTENSION (4) Renal insufficiency Code(s): N28.9 - DISORDER OF KIDNEY AND URETER, UNSPECIFIED (5) Fall Code(s): W19.XXXA - UNSPECIFIED FALL, INITIAL ENCOUNTER
--- NOTE | 2017-02-09 13:16 | DS ---
Physical Examination Vital Signs: Vital Signs Temperature 98.4 F 02/09/17 07:48 Pulse Rate 86 02/09/17 07:48 Respiratory Rate 20 02/09/17 07:48 Blood Pressure 155/63 02/09/17 07:48 O2 Sat by Pulse Oximetry (%) 96 02/08/17 21:00 Findings/Remarks: Pt w/o fever, chills, SOB, CP, palp, abd pain, dysuria. Constitutional: Yes: No Distress, Calm Cardiovascular: Yes: Regular Rate and Rhythm, S1, S2 Respiratory: Yes: Regular, CTA Bilaterally. No: Rales Gastrointestinal: Yes: Normal Bowel Sounds, Soft. No: Tenderness Edema: No Neurological: Yes: Alert Labs: CBC, BMP 02/06/17 06:00 02/09/17 07:35 Discharge Summary Reason For Visit: ACUTE KIDNEY INJURY; PNEUMONIA Current Active Problems HORTENSIA (acute kidney injury) (Acute) Anemia (Acute) CAD (coronary artery disease) (Acute) Dehydration (Acute) Diabetes (Acute) Fall (Acute) Hyperkalemia (Acute) Hypertension (Acute) Lactic acid acidosis (Acute) Pericardial effusion (Acute) Pneumonia (Acute) Procedures: Principal: CXR Hospital Course: Pt came to ER s/p fall (slid down from the bed), found to have LLL PNA, started on IV Levaquin; pt also with ARF, started on IVF; pt's UCX + for E Coli, sensitive to Levaquin. Pt was seen by Renal (Dr. Alegre). Pt condition improved, she increased PO fluid intake. Pt to be DC'ed home (she wouldn't agree to go to rehab) with outpatient f/u. Condition: Fair - Instructions Diet, Activity, Other Instructions: Low salt, Low fat. Encourage Fluid intake Referrals: Seferino Mena MD [Staff Physician] - (next week) Disposition: HOME - Home Medications Comprehensive Discharge Medication List: Ambulatory Orders This list might NOT be accurate Aspirin [ASA -] 81 mg PO DAILY 09/01/15 Carvedilol 25 mg PO BID 09/01/15 Clopidogrel Bisulfate [Clopidogrel] 75 mg PO DAILY 09/01/15 Gabapentin 100 mg PO HS 09/01/15 Levetiracetam 250 mg PO BID 09/01/15 Levothyroxine [Synthroid -] 125 mcg PO DAILY 09/01/15 Ranitidine [Zantac -] 150 mg PO DAILY 09/01/15 Simvastatin 10 mg PO HS 09/01/15 Solifenacin Succinate [Vesicare -] 10 mg PO DAILY 01/27/16 Acetaminophen [Tylenol .Regular Strength -] 650 mg PO Q6H PRN #0 tablet Heparin - 5,000 unit SQ BID vial 01/29/16 Insulin (Novolog) [Novolog -] 0 units SQ ACHS units 01/29/16 Latanoprost 0.005% Eye Drops [Xalatan 0.005% Eye Drops -] 1 drop OU DAILY drops 01/29/16 Nifedipine ER [Procardia XL -] 30 mg PO DAILY tab.er.24 01/29/16 Oxycodone HCl/Acetaminophen [Percocet 5-325 mg Tablet] 1 tab PO Q8H PRN #20 tablet MDD 3 01/29/16 Polyethylene Glycol 3350 [Miralax 119 gm Btl -] 17 gm PO DAILY bottle 01/29/16
[2017-02-09] MEDS ORDERED: PT OWN MED DRAWER 7, Y5N ONE (14:06)
[2017-02-10] MEDS ORDERED: LEVOFLOXACIN 250 MG TABLET (FP) PO SCH (10:00)
== END 2017-02-09 14:10 | disposition home or self-care (01) | DRG 871 ==
LOC: JER 13:10 → JERBED 17:07 → J5S 19:28
PROVIDERS: ADMIT Specialist; ATTEND Specialist
DX: A41.9 Sepsis, unspecified organism (principal); J18.1 Lobar pneumonia, unspecified organism; N17.9 Acute kidney failure, unspecified; E87.2 Acidosis; N18.4 Chronic kidney disease, stage 4 (severe); R00.0 Tachycardia, unspecified; E86.0 Dehydration; I48.91 Unspecified atrial fibrillation; E78.5 Hyperlipidemia, unspecified; D64.9 Anemia, unspecified; I25.10 Atherosclerotic heart disease of native coronary artery without angina pectoris; I12.9 Hypertensive chronic kidney disease with stage 1 through stage 4 chronic kidney disease, or unspecified chronic kidney disease; E11.22 Type 2 diabetes mellitus with diabetic chronic kidney disease; E83.42 Hypomagnesemia; W06.XXXA Fall from bed, initial encounter; Y93.89 Activity, other specified; Y92.092 Bedroom in other non-institutional residence as the place of occurrence of the external cause; Z86.73 Personal history of transient ischemic attack (TIA), and cerebral infarction without residual deficits
CPT/HCPCS: 36415; 71010-TC; 80048; 80053; 81003; 81015; 82570; 83605; 83735; 84100; 84156; 84300; 84484; 85025; 85027; 85610; 85730; 86850; 86900; 86901; 87040; 87086; 87186; 93005; 93010; 94761; 97116-GP; 97161-GP; 99284-25; J1644

== ENCOUNTER 2018-03-31 14:00 | Emergency (ER) | payer OTHER, MEDICARE ==
--- NOTE | 2018-03-31 15:02 | PDOC ---
Attending Attestation - Resident Resident Name: CarolMoni - ED Attending Attestation I have performed the following: I have examined & evaluated the patient, The case was reviewed & discussed with the resident, I agree w/resident's findings & plan, Exceptions are as noted - HPI HPI: 03/31/18 16:24 Agree with - Physicial Exam PE: 03/31/18 17:15 Agree with Residents PE - Medical Decision Making 03/31/18 17:27 Atraumatic on discomfort EKG demonstrates normal sinus rhythm no ST elevations or T-wave inversions. Troponin negative. No acute fracture-dislocations on an x- ray. Likely chronic shoulder pain patient advised to follow-up with orthopedics. Funds, the need for follow-up and strict return instructions discussed with patient.
[2018-03-31 15:04] VITALS: TEMP 98.1; BMI 21.9
--- NOTE | 2018-03-31 15:04 | PDOC ---
History of Present Illness - General Stated Complaint: LEFT JOINT PAIN Time Seen by Provider: 03/31/18 14:24 History Source: Patient Exam Limitations: No Limitations - History of Present Illness Initial Comments: 03/31/18 19:11 Pt is an 82yo f with PMH of htn, afib, hld, anemia, renal insufficiency presenting to ED with complaints of L shoulder pain that stated yesterday. Pt says the pain was gradually getting worse, feels achy 8/10, does not radiate.She has not taken anything for the pain. She said she fell onto her L shoulder a few weeks ago when trying to get up to use her walker but did not have pain then. Pt says she is moving apartment rooms and has been lifting things and moving them around. She denies trauma, fevers, chills, headache, neck pain, numbness/tingling. No changes in skin. She is on Plavix and ASA. PCP: Rajesh PMH: see hpi PSH: Francois ankle Meds: see med rec Allergies; nkda Social: denies Past History - Past Medical History Allergies/Adverse Reactions: Allergies Allergy/AdvReac Type Severity Reaction Status Date / Time No Known Allergies Allergy Verified 02/03/17 13:56 Home Medications: Ambulatory Orders Aspirin [ASA -] 81 mg PO DAILY 09/01/15 Carvedilol 25 mg PO BID 09/01/15 Clopidogrel Bisulfate [Clopidogrel] 75 mg PO DAILY 09/01/15 Gabapentin 100 mg PO HS 09/01/15 Levetiracetam 250 mg PO BID 09/01/15 Levothyroxine [Synthroid -] 125 mcg PO DAILY 09/01/15 Ranitidine [Zantac -] 150 mg PO DAILY 09/01/15 Simvastatin 10 mg PO HS 09/01/15 Solifenacin Succinate [Vesicare -] 10 mg PO DAILY 01/27/16 Acetaminophen [Tylenol .Regular Strength -] 650 mg PO Q6H PRN #0 tablet Latanoprost 0.005% Eye Drops [Xalatan 0.005% Eye Drops -] 1 drop OU DAILY drops 01/29/16 Nifedipine ER [Procardia XL -] 30 mg PO DAILY tab.er.24 01/29/16 Polyethylene Glycol 3350 [Miralax 119 gm Btl -] 17 gm PO DAILY bottle 01/29/16 Magnesium Oxide [Mag-Ox -] 400 mg PO DAILY #30 tablet 02/09/17 Mupirocin Cream [Bactroban 2% Cream -] 1 applic TP BID #1 tube 02/09/17 levoFLOXacin [Levaquin -] 250 mg PO DAILY #8 tablet 02/09/17 Cardiac Disorders: Yes CVA: Yes (3-4 y/ago) COPD: No Diabetes: Yes HTN: Yes Seizures: Yes (3-4 y/ago) - Surgical History Cholecystectomy: Yes Orthopedic Surgery: Yes (Right foot) - Suicide/Smoking/Psychosocial Hx Smoking Status: No Smoking History: Former smoker Have you smoked in the past 12 months: No Number of Cigarettes Smoked Daily: 0 Information on smoking cessation initiated: No Hx Alcohol Use: No Drug/Substance Use Hx: No Substance Use Type: None Hx Substance Use Treatment: No *Physical Exam - Vital Signs Last Vital Signs Temp Pulse Resp BP Pulse Ox 98.1 F 80 18 155/68 97 03/31/18 14:38 03/31/18 14:38 03/31/18 14:38 03/31/18 14:38 03/31/18 14:38 ED Treatment Course - LABORATORY CBC & Chemistry Diagram: 03/31/18 15:42 03/31/18 15:42 *DC/Admit/Observation/Transfer Diagnosis at time of Disposition: Shoulder pain Qualifiers: Chronicity: acute Laterality: left Qualified Code(s): M25.512 - Pain in left shoulder - Discharge Dispostion Disposition: HOME Condition at time of disposition: Improved - Referrals Referrals: Seferino Mena MD [Primary Care Provider] - - Patient Instructions Printed Discharge Instructions: DI for Shoulder Pain Additional Instructions: You were seen here today because you were having shoulder pain. The labs were normal. The xray showed tendinitis of your shoulder Please try to rest your arm, try not to move heavy objects. You can take Tylenol for pain. Please follow up with orthopedics: and Dr. Mena within the next week. Please come back to the ED if: your pain gets worse, you are unable to move your arm, your arm feels numb, you develop chest pain or shortness of breath, you develop joint swelling or if any new concerning symptom develops. Thank you - Post Discharge Activity
[2018-03-31] MEDS ORDERED: ACETAMINOPHEN 500 MG TABLET (FP) PO ONE (15:05)
[2018-03-31] MEDS ORDERED: ACETAMINOPHEN 325 MG TABLET (FP) ONE (15:11)
[2018-03-31 16:05] LABS: BASO % 0.8 % (0-2.0); EOS % 3.7 % (0-4.5); HEMATOCRIT 28.7 % (32.4-45.2); HEMOGLOBIN 9.6 GM/dL (10.7-15.3); LYMPH % 16.8 % (8-40); MCH 29.4 pg (25.7-33.7); MCHC 33.6 g/dl (32.0-36.0); MEAN CELL VOLUME 87.4 fl (80-96); MEAN PLT VOLUME 9.2 fl (7.5-11.1); MONO % 10.9 % (3.8-10.2); NEUT % 67.8 % (42.8-82.8); PLATELET COUNT 185 K/MM3 (134-434); RBC 3.28 M/mm3 (3.60-5.2); RDW 14.4 % (11.6-15.6); WHITE BLOOD COUNT 4.3 K/mm3 (4.0-10.0)
[2018-03-31 16:24] LABS: ALBUMIN 3.6 g/dl (3.4-5.0); ALK PHOS 56 U/L (45-117); ANION GAP 6 MMOL/L (8-16); BILIRUBIN,TOTAL 0.2 mg/dL (0.2-1); BLOOD UREA NITROGEN 41 mg/dL (7-18); CALCIUM 10.3 mg/dL (8.5-10.1); CHLORIDE 108 mmol/L (98-107); CO2 26 mmol/L (21-32); CREATININE 2.3 mg/dL (0.55-1.3); GLUCOSE,RANDOM 116 mg/dL (74-106); POTASSIUM 5.2 mmol/L (3.5-5.1); SGOT/AST 19 U/L (15-37); SGPT/ALT 19 U/L (13-61); SODIUM 140 mmol/L (136-145); TOT PROT 7.9 g/dl (6.4-8.2)
[2018-03-31 17:51] VITALS: BP 150/77; PULSE 92
--- NOTE | 2018-04-01 11:17 | EKG ---
Test Reason : Blood Pressure : / mmHG Vent. Rate : 078 BPM Atrial Rate : 078 BPM P-R Int : 154 ms QRS Dur : 082 ms QT Int : 368 ms P-R-T Axes : 054 008 053 degrees QTc Int : 419 ms SINUS RHYTHM WITH OCCASIONAL PREMATURE VENTRICULAR COMPLEXES ANTEROSEPTAL INFARCT (CITED ON OR BEFORE 13-JAN-2015) ABNORMAL ECG WHEN COMPARED WITH ECG OF 03-FEB-2017 13:35, PREMATURE VENTRICULAR COMPLEXES ARE NOW PRESENT VENT. RATE HAS DECREASED BY 39 BPM QUESTIONABLE CHANGE IN INITIAL FORCES OF ANTERIOR LEADS Confirmed by DAVID CAMACHO MD ([id number]) on 04/01/2018 11:16:44 AM Referred By: Confirmed By:DAVID CAMACHO MD
== END 2018-03-31 17:51 | disposition home or self-care (01) ==
LOC: JER 14:00
DX: M25.512 Pain in left shoulder (principal); W18.39XA Other fall on same level, initial encounter; Y93.89 Activity, other specified; Y92.89 Other specified places as the place of occurrence of the external cause; Y99.8 Other external cause status; I10 Essential (primary) hypertension; I48.91 Unspecified atrial fibrillation; Z79.01 Long term (current) use of anticoagulants; E78.5 Hyperlipidemia, unspecified; D64.9 Anemia, unspecified; R26.89 Other abnormalities of gait and mobility; Z99.89 Dependence on other enabling machines and devices; Z86.73 Personal history of transient ischemic attack (TIA), and cerebral infarction without residual deficits; Z86.69 Personal history of other diseases of the nervous system and sense organs
CPT/HCPCS: 36415; 71045-TC-FY; 73030-TC-LT-FY; 80053; 84484; 85025; 93005; 93010; 99281-25